=== PATIENT | male | born 1960 | race Caucasian/White ===

== ENCOUNTER 2025-02-28 09:33 | Outpatient (CLI) | payer MEDICARE, BC ==
[~2025-02-28 09:33] MED LIST: iohexol 300mg/ml 100ml inj. ONE
[2025-02-28 10:19] LABS: ALANINE AMINOTRANSFERASE 23 U/L (12-78); ALBUMIN 3.9 G/DL (3.4-5.0); ALBUMIN/GLOBULIN RATIO 1.3 (1.1-1.5); ALKALINE PHOSPHATASE 67 IU/L (46-116); ANION GAP 4 (8-16); ASPARTATE AMINO TRANSFERASE 15 U/L (10-37); BILIRUBIN,TOTAL 0.5 MG/DL (0.1-1.0); BLOOD UREA NITROGEN 17 MG/DL (7-18); BUN/CREATININE RATIO 15.9 (10.0-20.0); CALCIUM 8.9 MG/DL (8.5-10.1); CHLORIDE 108 MMOL/L (99-107); CREATININE 1.07 MG/DL (0.60-1.10); GLUCOSE 95 MG/DL (70-104); POTASSIUM 4.5 MMOL/L (3.5-5.1); SODIUM 142 MMOL/L (135-145); TOTAL PROTEIN 6.9 G/DL (6.4-8.2); eGFR 69 ML/MIN
--- NOTE | 2025-02-28 13:01 | RADIOLOGY REPORT ---
Exam: CT CT ABDOMEN PELVIS W/ IV CONTRAST History: UNILATERAL INGUINAL HERNIA, W/O OBST OR GANGRENE COMPARISON: None Technique: Multidetector spiral CT of the abdomen and pelvis was performed from lung bases to pubic symphysis. Intravenous contrast was administered during this examination. Portal venous imaging was obtained. Axial, coronal and sagittal multiplanar reformats were performed by the technologist on a separate workstation. Radiation Dose : Abdomen/Pelvis: CTDIvol 18 mGy, DLP 1022 mGy*cm. CONTRAST: Type of contrast: Omni 300 Contrast injected: 100 mL Findings: Limited evaluation of the pelvis due to metallic artifact related to right hip arthroplasty . Lung Bases: Mild atelectasis/ scarring at the right lung base. Liver: Diffuse hepatic steatosis. Subcentimeter right hepatic cyst. Gallbladder and biliary Tree: Unremarkable Spleen: Unremarkable Pancreas: Mild prominence of the pancreatic duct with possible cysts in the body and tail of the panc reas. Adrenal Glands: Unremarkable Kidneys: Subcentimeter left renal cysts. No hydronephrosis. Bladder: Unremarkable Bowel: The stomach is grossly normal in appearance. Small bowel and colon are normal in caliber and d istribution. The appendix is not visualized; however, no secondary findings of acute appendicitis fabricio ntified. Sigmoid diverticulosis. Ascites: Absent Lymphadenopathy: No mesenteric, retroperitoneal or periportal lymphadenopathy. Abdominal wall and Mesentery: Fat and colon containing left inguinal hernia. Vasculature: The visualized abdominal aorta is normal in size and caliber. Abdominal and pelvic vess els demonstrate normal enhancement. Pelvic Organs: Unremarkable Musculoskeletal: No aggressive focal bony lesions, acute fractures or dislocation. IMPRESSION: 1. No acute abdominal or pelvic finding. Left inguinal hernia containing sigmoid colon. No evidence of obstruction. Sigmoid diverticulosis. Diffuse hepatic steatosis. Subcentimeter hepatic cyst. Lef t renal cysts. Atelectasis and scarring in the right lung base. 2. Mild prominence of the pancreatic duct with possible cysts in the body and tail of the pancreas. T his can be further evaluated with MRI of the abdomen with contrast. Radiation optimization: All CT scans at this facility use at least one of these dose optimization ale hniques: Automated exposure control mA and/or kV adjustment per patient size (includes targeted exams where dose is matched to clinical indication) or iterative reconstruction. HS:Y
== END 2025-02-28 23:59 | disposition home or self-care (01) ==
LOC: RAD 09:33
PROVIDERS: ATTEND Nurse Practitioner Family
DX: Z01.818 Encounter for other preprocedural examination (principal); K40.91 Unilateral inguinal hernia, without obstruction or gangrene, recurrent; N28.1 Cyst of kidney, acquired; K76.0 Fatty (change of) liver, not elsewhere classified; K76.89 Other specified diseases of liver; K57.30 Diverticulosis of large intestine without perforation or abscess without bleeding; J98.11 Atelectasis; J98.4 Other disorders of lung
CPT/HCPCS: 36415; 74177; 80053; Q9967

== ENCOUNTER 2025-04-25 12:23 | Day surgery (SDC) | payer MEDICARE, BC ==
[2025-04-18 15:57] LABS: MEAN PLATELET VOLUME 8.9 FL (7.4-10.4); PRE OP HEMATOCRIT 42.3 % (42.0-52.0); PRE OP HEMOGLOBIN 14.1 g/dL (14.0-17.9); PRE OP PLATELET COUNT 223 X10'3 (140-440); PRE OP WHITE BLOOD COUNT 11.4 10'3 (4.8-10.8); RED CELL DISTRIBUTION WIDTH 14.1 % (11.5-14.5)
--- NOTE | 2025-04-18 15:57 | ELECTROCARDIOGRAPH REPORT ---
[facility] Test Date: 2025-04-18 Test Time: 15:52:54 Pat Name: PREMA LANGE Department: [facility]-PRE-OP Patient ID: [facility]-[id number] Room: Gender: M Life Agent: : [id number] Requested By: BRENDON DSOUZA Order Number: [id number] Reading MD: Dr. FOUZIA Tavarez Measurements Intervals Donaldson Rate: 60 P: 44 IA: 160 QRS: 31 QRSD: 97 T: 59 QT: 395 QTc: 395 Interpretive Statements Sinus rhythm Electronically Signed On 04-19-2025 14:01:[address] FOUZIA Tavarez Please click the below link to view image of tracing.
[2025-04-18 16:15] LABS: CREATININE 1.22 MG/DL (0.60-1.10); PRE OP ALT 26 U/L (30-65); PRE OP ANION GAP 8 (8-16); PRE OP AST 16 U/L (10-37); PRE OP BILIRUB, TOTAL 0.3 MG/DL (0.0-1.0); PRE OP GLUCOSE 126 MG/DL (70-104); PRE OP POTASSIUM 3.9 MMOL/L (3.4-5.1); PRE OP SODIUM 139 MMOL/L (135-145); TOTAL CARBON DIOXIDE 28.0 MMOL/L (24-32); eGFR 59 ML/MIN
[~2025-04-25] VITALS: Ht 175.3 cm; Wt 77.2 kg
[2025-04-25] VITALS (17 sets, daily range): BP systolic 100–138; BP diastolic 57–81; PULSE 70–91; RESP 14–21; TEMP 97.8–98.5; O2SAT 94–100
[~2025-04-25 12:23] MED LIST changes: +SEMA2PEN SQ; +TRAZ150T78 PO; -iohexol 300mg/ml 100ml inj. ONE
[2025-04-25] MEDS: ringers solution, lacted 1,000 ML IV SCH ×2 (13:39→17:26)
[2025-04-25] MEDS: ceFAZolin 2gm/dext,iso 50mL 50 ML IV ONE (13:40)
[2025-04-25] MEDS ORDERED: LIDOcaine 1% 30ml preserv. free vial ONE (14:05)
[2025-04-25] MEDS ORDERED: BUPIVAcaine 2.5mg/ml inj 50ml vial (contains preservative) ONE (14:05)
[2025-04-25] MEDS ORDERED: fentaNYL/PF 50MCG/1 ML 2ML syringe ONE (15:06)
[2025-04-25] MEDS ORDERED: rocuronium 10mg/ml inj IV ONE (15:06)
[2025-04-25] MEDS ORDERED: LIDOcaine 1%/PF 5ML 10 MG/ML VIAL ONE ×2 (15:06→15:23)
[2025-04-25] MEDS: midazolam 1 mg/ML 2ml injection IV ONE (15:11)
[2025-04-25] MEDS ORDERED: ondansetron/PF 4mg/2ml inj IV PRN (15:15)
[2025-04-25] MEDS ORDERED: fentaNYL/PF 50MCG/1 ML 2ML syringe IV PRN ×2 (15:15)
[2025-04-25] MEDS ORDERED: hydrALAZINE 20mg/ml inj. IV PRN (15:15)
[2025-04-25] MEDS ORDERED: labetalol 20mg/4ml (5mg/ml) syringe IV PRN (15:15)
[2025-04-25] MEDS ORDERED: propofol inj 20 ML IV ONE (15:23)
[2025-04-25] MEDS ORDERED: dexamethasone sod phosphate 4mg/ml inj. ONE (15:24)
[2025-04-25] MEDS ORDERED: ondansetron/PF 4mg/2ml inj ONE (15:24)
[2025-04-25] MEDS ORDERED: HYDROcodone/acetaminophen 5mg/325mg tablet PO PRN (16:30)
--- NOTE | 2025-04-25 16:43 | OPERATIVE REPORT ---
Operative Report Providers to CC CC: PRAKASH DSOUZA MD ~ Date of Procedure: Apr 25, 2025 Pre-Operative Diagnosis: Left inguinal hernia Post-Operative Diagnosis Left inguinal hernia Pelvic peritoneal implants Procedure Performed Robotic assisted, laparoscopic surgical biopsy of peritoneal implants Robotic assisted, laparoscopic left inguinal hernia repair with mesh Surgeon: Prakash Dsouza MD FACS Drink Waiter None Anesthesiologist: Channing Palomo Type of Anesthesia: General Findings: Karfbstd-[id number]-[id number] indirect left inguinal hernia Numerous (> 10) pelvic and lower abdominal peritoneal implants of unclear etiology No other intra-abdominal findings in the mid or upper abdomen including surfaces of the liver or underside of the diaphragm Wound class I Complications None Prosthetics\Implants used: Large Dextile mesh-left Estimated Blood Loss: Minimal Specimen Removed: Pelvic peritoneal implant Description of Procedure: Patient was brought to the operating room and identified by the nursing staff and the attending physician. Patient was placed supine and general anesthesia was induced. Patient's abdomen was prepped and draped in standard sterile fashion. Preoperative antibiotics were given. Supraumbilical incision was made to allow for standard Sin entry technique. Laparoscope was inserted after insufflation. Bilateral, 8.5 mm robotic trochars were placed under laparoscopic guidance following administration of local anesthetic. The da Jeff robotic arm was docked to the patient and instruments placed intra-abdominally under laparoscopic visualization. The right hemipelvis was examined and showed no evidence of right inguinal hernia. There were about 10-20 peritoneal implants in the lower abdomen and pelvic inlet. These appeared granulomatous in nature. The remainder of the abdomen was surveyed and no other gross abnormalities were noted, including on the surfaces of the liver and undersides of the diaphragm. One of the larger peritoneal implants about 5-7 mm in diameter, was biopsied and removed and sent as specimen for permanent. An indirect inguinal hernia was identified on the left side. Hernia sac was moderate in size. A rent was created in the peritoneum from the median umbilical fold and carried out laterally towards the anterior superior iliac spine. Preperitoneal flap was created and carried down to the symphysis pubis. The retropubic space of Retzius was developed and the bladder swept medially. Dissection was carried out laterally until an indirect hernia sac was identified. This was fairly large in size, extending deep into the left inguinal canal/hemiscrotum. Hernia sac was completely dissected away from the cord structures and reduced. The critical view of the myopectineal orifice was achieved. Dissection was carried out laterally to allow space for mesh dep loyment. A large Dextile mesh and suture was passed intra-abdominally. Mesh was laid in the preperitoneal space covering both indirect, direct, and potential femoral and obturator hernias. Mesh laid without wrinkles or folds. 3 tacking sutures using 0 Ethibond were used to fix the mesh at the symphysis pubis, rectus abdominis, and just anterior to the anterior superior iliac spine. The peritoneal rent was then closed with running, 2/0, absorbable locking suture. [place] were retrieved. Abdomen was deflated and secondary trochars removed. Fascia at the umbilical port site was closed with 0 Vicryl sutures. Skin incisions were closed with 4-0 Monocryl sutures in a subcuticular fashion. Sterile dressings were applied. Patient was awakened and taken to the postanesthesia care unit in stable condition. Counts repoted as correct: Yes PRAKASH DSOUZA MD Apr 25, 2025 16:43
[2025-04-25] MEDS: morphine 4 MG/ML inj SYRINge IV PRN (16:57)
[2025-04-25] MEDS: HYDROcodone/acetaminophen 5mg/325mg tablet PO ONE (17:55)
[2025-04-25] MEDS: MIDAZolam 1 MG/ML 5ML VIAL IV ONE (17:56)
--- NOTE | 2025-05-01 18:33 | PATHOLOGY REPORT ---
[facility] [address] [place] [address] SURGICAL PATHOLOGY REPORT CaseNumber: [id number] Surgeon:Prakash Gusman P.A.-C CLINICAL INFORMATION CLINICAL INFORMATION: Not provided. DIAGNOSIS DIAGNOSIS: PELVIC/PERITONEUM; EXCISION - METASTATIC ADENOCARCINOMA. COMMENT NOTE: The morphology and immunophenotypic profile is nonspecific as to cell lineage/site of origin. T he findings suggest the possibility of upper gastric intestinal tract/pancreatic primary, among other s. Please correlate with clinical and radiologic findings. If site of origin can not be ascertained a nd is clinically important, a block can be sent for ancillary studies aiming to better suggest possib le primary sites. (bb) Dr. Placido Ontiveros has reviewed this case and agrees with the interpretation. MICROSCOPIC DESCRIPTION MICROSCOPIC DESCRIPTION: One H&E stained slide is examined. Present is altered fibroadipose soft tiss ue which contains adenocarcinoma. The adenocarcinoma forms glands and small kbt-fwojf-dlpstid cluster s. The glands have columnar epithelium. Nuclei are enlarged pleomorphic with irregular nuclear outlin es, and prominent nucleoli. Mitotic figures are noted. Immunoperoxidase studies are as follows: AE1/AE3 .... Positive CK7 ......... Positive CK20 ........ Negative TTF-1 ....... Negative Napsin-A .... Negative CDX-2 ....... Negative SAT-B2 ...... Negative NKX3.1 ...... Negative PSA ......... Negative PSAP ........ Negative PAX-8 ....... Negative P40 ......... Negative (st) GROSS DESCRIPTION GROSS DESCRIPTION: Received in a container of formalin labeled with the patient's name, number, and " pelvic peritoneal implant" is a 1.4 x 0.7 x 0.4 cm irregularly shaped piece of mas tissue. The specim en is bisected and entirely submitted as A1. The time at which the specimen was removed was not provi ded. The time at which the specimen was placed in formalin was not provided. (meb) Electronically signed by: Reinaldo Christie M.D. 05/01/2025 5:53:00 PM
== END 2025-04-25 20:02 | disposition home or self-care (01) ==
LOC: PAS 12:23
PROVIDERS: ATTEND Surgery
DX: K40.90 Unilateral inguinal hernia, without obstruction or gangrene, not specified as recurrent (principal); Z79.899 Other long term (current) drug therapy; Z96.652 Presence of left artificial knee joint; Z96.641 Presence of right artificial hip joint
CPT/HCPCS: 36415; 49321; 49650; 80053; 82948; 85025; 93005; A4215; A4314; A4618; C1781; J1100; J2003; J2250; J2270; J2405; J2704; J3010; J3490; J7030; J7120; Z7506; Z7508; Z7512; Z7610